=== PATIENT | male | born 1970 | race Two or more races ===

== ENCOUNTER 2024-08-21 09:19 | Outpatient (AMB) | payer BC, SELFPAY ==
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
[2024-08-21 10:13] VITALS: BP 128/82; PULSE 71; RESP 18; TEMP 36.7; O2SAT 96; BMI 23.8
== END 2024-08-21 10:40 | disposition home or self-care (01) ==
LOC: HODSRG 09:19
PROVIDERS: PCP Family Medicine; Referring Provider Family Medicine; Supervising Provider Orthopaedic Surgery Adult Reconstructive Orthopaedic Surgery; Visit Provider Orthopaedic Surgery Adult Reconstructive Orthopaedic Surgery
DX: M17.12 Unilateral primary osteoarthritis, left knee (principal); M25.562 Pain in left knee
CPT/HCPCS: 99213; G0463